=== PATIENT | male | born 1980 | race Caucasian/White ===

== ENCOUNTER 2017-05-27 21:43 | Emergency (ER) | payer MEDICAID, OTHER ==
[~2017-05-27] VITALS: Ht 182.9 cm; Wt 100.0 kg
[~2017-05-27 21:43] MED LIST: MMW SWISH-SWAL
[2017-05-27] MEDS ORDERED: LORazepam 2 MG/ML VIAL IV PUSH ONE (22:00)
[2017-05-27] MEDS ORDERED: HALOPERIDOL LACTATE 5 MG/ML AMP IM ONE (22:00)
[2017-05-27 22:01] VITALS: PULSE 99; RESP 18; O2SAT 99
[2017-05-27 22:05] VITALS: BP 138/93; PULSE 99; RESP 18; TEMP 98.7; O2SAT 97
[2017-05-27 23:01] LABS: AUTOMATED NEUTROPHIL # 8.1 TH/MM3 (1.8-7.7); BASOPHIL % 0.4 % (0.0-2.0); EOSINOPHIL # 0.1 TH/MM3 (0-0.4); EOSINOPHIL % 1.2 % (0.0-4.0); HEMATOCRIT 43.8 % (39.0-51.0); HEMOGLOBIN 15.6 GM/DL (13.0-17.0); LYMPH % 18.8 % (9.0-44.0); LYMPHOCYTE # 2.1 TH/MM3 (1.0-4.8); MEAN CELL VOLUME 91.8 FL (80.0-100.0); MEAN CORPUSCULAR HEMOGLOBIN 32.6 PG (27.0-34.0); MEAN CORPUSCULAR HGB CONC 35.6 % (32.0-36.0); MEAN PLATELET VOLUME 7.4 FL (7.0-11.0); MONO % 6.8 % (0.0-8.0); MONOCYTE # 0.8 TH/MM3 (0-0.9); NEUT % 72.8 % (16.0-70.0); PLATELET COUNT 269 TH/MM3 (150-450); RED BLOOD COUNT 4.78 MIL/MM3 (4.50-5.90); RED CELL DISTRIBUTION WIDTH 14.1 % (11.6-17.2); WHITE BLOOD COUNT 11.1 TH/MM3 (4.0-11.0)
[2017-05-27 23:17] LABS: ALBUMIN 3.8 GM/DL (3.4-5.0); AST (GOT) 42 U/L (15-37); BICARBONATE 21.6 MEQ/L (21.0-32.0); BLOOD UREA NITROGEN 12 MG/DL (7-18); CALCIUM 8.7 MG/DL (8.5-10.1); CHLORIDE 107 MEQ/L (98-107); CREATININE 0.99 MG/DL (0.60-1.30); GLOMERULAR FILTRATION RATE 84 ML/MIN (>89); GLUCOSE,RANDOM 82 MG/DL (74-106); SODIUM (NA) 140 MEQ/L (136-145)
[2017-05-27 23:18] LABS: ALT (GPT) 52 U/L (12-78)
[2017-05-27 23:20] LABS: ALKALINE PHOSPHATASE 115 U/L (45-117); TOTAL BILIRUBIN ADULT 0.3 MG/DL (0.2-1.0); TOTAL PROTEIN 7.7 GM/DL (6.4-8.2)
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
[2017-05-28] MEDS ORDERED: TETANUS/DIPHTHERIA TOXOID ADULT 0.5 ML VIAL IM ONE (00:30)
== END 2017-05-28 00:37 | disposition home or self-care (01) ==
LOC: NEPD 21:43
DX: S01.01XA Laceration without foreign body of scalp, initial encounter (principal); S00.03XA Contusion of scalp, initial encounter; F10.129 Alcohol abuse with intoxication, unspecified; W19.XXXA Unspecified fall, initial encounter; Y35.893A Legal intervention involving other specified means, suspect injured, initial encounter; Y90.7 Blood alcohol level of 200-239 mg/100 ml; Z23 Encounter for immunization
CPT/HCPCS: 12002; 70450; 80053; 80307; 85025; 90471; 90714

== ENCOUNTER 2017-06-05 19:43 | Emergency (ER) | payer MEDICAID, OTHER ==
[~2017-06-05] VITALS: Ht 182.9 cm; Wt 105.0 kg
[2017-06-05 20:17] VITALS: BP 163/92; PULSE 90; RESP 18; TEMP 98.7; O2SAT 96
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
== END 2017-06-05 21:46 | disposition home or self-care (01) ==
LOC: PHED 19:43
DX: G56.21 Lesion of ulnar nerve, right upper limb (principal); R59.0 Localized enlarged lymph nodes; F17.200 Nicotine dependence, unspecified, uncomplicated
CPT/HCPCS: 99281